=== PATIENT | female | born 1950 | race Caucasian/White ===

== ENCOUNTER → 2017-08-06 | Outpatient (CLI) | payer MEDICARE, OTHER ==
[~2017-08-06] MED LIST: COZAAR 50 MG TA50 M1 PO; GLUMETZA1000 PO; GLUMETZA500 PO; HYDROCODONE-AP1 EAC6 PO; IBUPROFEN 800800 M1 PO; LEVEMIR SQ; LIPITOR 20 MG T20 M1 PO; LISINOPRIL10 MG PO; LOVASTAT10 PO; NOVOLOG100 UNIT/1 SQ; PERCOCET 5-3251 EACH PO; SIMVASTATIN40 MG PO
== END ==
LOC: M.RAD 12:57
DX: Z12.31 Encounter for screening mammogram for malignant neoplasm of breast (principal); E11.9 Type 2 diabetes mellitus without complications

== ENCOUNTER 2017-10-25 20:41 | Emergency (ER) | payer MEDICARE, OTHER ==
[~2017-10-25] VITALS: Ht 157.5 cm; Wt 111.1 kg
[~2017-10-25 20:41] MED LIST changes: -COZAAR 50 MG TA50 M1 PO; -HYDROCODONE-AP1 EAC6 PO; -IBUPROFEN 800800 M1 PO; -LIPITOR 20 MG T20 M1 PO
[2017-10-25] MEDS ORDERED: COZAAR 50 MG TA50 M1 PO (20:54)
[2017-10-25] MEDS ORDERED: LIPITOR 20 MG T20 M1 PO (20:55)
[2017-10-25] MEDS ORDERED: IBUPROFEN 800800 M1 PO (21:52)
[2017-10-25] MEDS ORDERED: HYDROCODONE-AP1 EAC6 PO (21:52)
[2017-10-25 22:15] VITALS: BP 159/74
== END 2017-10-25 22:22 | disposition still patient (30) ==
LOC: M.ERS 20:41
DX: S42.291A Other displaced fracture of upper end of right humerus, initial encounter for closed fracture (principal); I10 Essential (primary) hypertension; E78.5 Hyperlipidemia, unspecified; E11.9 Type 2 diabetes mellitus without complications; G47.30 Sleep apnea, unspecified; E66.01 Morbid (severe) obesity due to excess calories; Z68.41 Body mass index [BMI] 40.0-44.9, adult; Z79.4 Long term (current) use of insulin; W01.0XXA Fall on same level from slipping, tripping and stumbling without subsequent striking against object, initial encounter; Y93.89 Activity, other specified; Y92.89 Other specified places as the place of occurrence of the external cause; Y99.8 Other external cause status

== ENCOUNTER → 2018-03-17 | Outpatient (CLI) | payer MEDICARE, OTHER ==
[~2018-03-17] MED LIST changes: +COZAAR 50 MG TA50 M1 PO; +HYDROCODONE-AP1 EAC6 PO; +IBUPROFEN 800800 M1 PO; +LIPITOR 20 MG T20 M1 PO
== END ==
LOC: M.ULTRA 16:52
DX: M79.89 Other specified soft tissue disorders (principal); M71.21 Synovial cyst of popliteal space [Baker], right knee

== ENCOUNTER → 2018-09-09 | Outpatient (CLI) | payer MEDICARE, OTHER ==
--- NOTE | 2018-09-09 16:20 | 2DMMODE ---
[place] [address] 2 D/M-MODE ECHOCARDIOGRAM Name: MARTADOUGIE MARCELINO CHERIE Room: [facility]#: [id number] Admission: 09/09/18 Attend Phys: Arie Jin, Discharge: Date of : 50 Date of Service: 09/09/18 1620 Report #: [id number] THIS REPORT FOR: //name// APPROVED REPORT Study performed: 09/09/2018 12:57:28 EXAM: Comprehensive 2D, Doppler, and color-flow Echocardiogram Patient Location: Out-Patient BSA: 2.07 HR: 88 bpm BP: 120/72 mmHg Other Information Study Quality: Fair Indications Murmur 2D Dimensions IVSd: 15.47 (7-11mm) LVOT Diam: 20.41 (18-24mm) LVDd: 43.85 mm PWd: 13.12 (7-11mm) Ascending Ao: 26.31 (22-36mm) LVDs: 25.44 (25-40mm) Aortic Root: 24.88 mm Volumes Left Atrial Volume (Systole) LA ESV Index: 20.20 mL/m2 Aortic Valve AoV Peak Carl.: 2.20 m/s AO Peak Gr.: 19.27 mmHg LVOT Max P.62 mmHg AO Mean Gr.: 11.70 mmHg LVOT Mean P.85 mmHg LVOT Max V: 0.95 m/s AO V2 VTI: 41.20 cm LVOT Mean V: 0.63 m/s PRERNA (VTI): 1.69 cm2 LVOT V1 VTI: 21.28 cm Mitral Valve E/A Ratio: 1.08 MV Decel. Time: 254.14 ms MV E Max Carl.: 0.94 m/s MV PHT: 73.70 ms MVA (PHT): 2.99 [place]2 [place] [address] 2 D/M-MODE ECHOCARDIOGRAM Name: DOUGIE LOZANO CHERIE Room: [facility]#: [id number] Admission: 09/09/18 Attend Phys: Arie Jin, Discharge: Date of : 50 Date of Service: 09/09/18 1620 Report #: [id number] TDI E/Lateral E': 15.67 E/Medial E': 13.43 Medial E' Carl.: 0.07 m/s Lateral E' Carl.: 0.06 m/s Pulmonary Valve PV Peak Carl.: 1.00 m/s PV Peak Gr.: 4.02 mmHg Left Ventricle The left ventricle is normal size. There is normal LV segmental wall motion. Mild concentric left ventricular hypertrophy. Left ventricular systolic function is normal. The left ventricular ejection fraction is within the normal range. LVEF is 65%. Grade I - abnormal relaxation pattern. Right Ventricle The right ventricle is normal size. The right ventricular systolic function is normal. Atria The left atrium size is normal. The right atrium size is normal. Aortic Valve Aortic valve is calcified. No aortic regurgitation is present. Mild aortic stenosis. Mitral Valve Mild mitral annular calcification. There is no mitral valve regurgitation noted. No evidence of mitral valve stenosis. Tricuspid Valve The tricuspid valve is normal in structure. There is no tricuspid valve regurgitation noted. Pulmonic Valve The pulmonary valve is normal in structure. There is no pulmonic valvular regurgitation. Great Vessels The aortic root is normal in size. IVC is normal in size and collapses >50% with inspiration. Pericardium There is no [place] [address] 2 D/M-MODE ECHOCARDIOGRAM Name: MARTADOUGIEMiquel CRESPO Room: [facility]#: [id number] Admission: 09/09/18 Attend Phys: Arie Jin, Discharge: Date of : 50 Date of Service: 09/09/18 1620 Report #: [id number] <Conclusion> The left ventricle is normal size. Mild concentric left ventricular hypertrophy. Left ventricular systolic function is normal. The left ventricular ejection fraction is within the normal range. LVEF is 65%. The right ventricle is normal size. The left atrium size is normal. Aortic valve is calcified. No aortic regurgitation is present. Mild aortic stenosis. Mild mitral annular calcification. There is no mitral valve regurgitation noted. No evidence of mitral valve stenosis. The tricuspid valve is normal in structure. IVC is normal in size and collapses >50% with inspiration. There is no pericardial effusion. There is normal LV segmental wall motion. <ELECTRONICALLY SIGNED> By: Arie Montez MD, FACC 09/09/18 [id number] Arie Montez MD, FACC /INF
== END ==
LOC: M.CRD 12:42
DX: I08.0 Rheumatic disorders of both mitral and aortic valves (principal)

== ENCOUNTER → 2019-02-09 | Outpatient (CLI) | payer MEDICARE, OTHER | LOC: M.RAD 10:30 | DX: Z12.31 Encounter for screening mammogram for malignant neoplasm of breast (principal); R06.02 Shortness of breath; M25.78 Osteophyte, vertebrae ==

== ENCOUNTER → 2021-02-21 | Outpatient (CLI) | payer MEDICARE, OTHER | LOC: M.RAD 02-14 16:36 | PROVIDERS: ATTEND Internal Medicine | DX: Z12.31 Encounter for screening mammogram for malignant neoplasm of breast (principal); M51.26 Other intervertebral disc displacement, lumbar region; M51.25 Other intervertebral disc displacement, thoracolumbar region; M85.88 Other specified disorders of bone density and structure, other site; M81.0 Age-related osteoporosis without current pathological fracture; G89.29 Other chronic pain ==